=== PATIENT | female | born 1955 | race Caucasian/White ===

== ENCOUNTER 2021-09-02 12:27 | Inpatient (IN) | payer MEDICAID ==
[2021-09-02] MEDS ORDERED: Sodium Chloride 0.9% 1,000 ML IV SCH ×2 (14:00)
[2021-09-02] MEDS ORDERED: Dextrose 5% in Water 1,000 ML IV SCH ×2 (17:15→21:55)
[2021-09-02 17:29] LABS: CORONAVIRUS COVID-19 NAA NEGATIVE (NEGATIVE)
[2021-09-02] MEDS ORDERED: Magnesium Hydroxide 400 MG/5 ML Susp 30 ML Cup PO PRN (17:45)
[2021-09-02] MEDS ORDERED: Ondansetron 4 MG/2 ML SDV IV PRN (17:45)
[2021-09-02] MEDS ORDERED: Ondansetron 4 MG Tab.DIS PO PRN (17:45)
[2021-09-02] MEDS ORDERED: Albuterol 0.083% 2.5 MG/3 ML Neb Soln NEB PRN (17:45)
[2021-09-02] MEDS ORDERED: LORazepam 2 MG/ML SDV IVPUSH PRN (17:45)
[2021-09-02] MEDS ORDERED: Acetaminophen 325 MG Tab PO PRN (17:45)
[2021-09-02] MEDS: cefTRIAXone 1 GM in Sodium Chloride 0.9% 50 ML IV SCH (18:24)
[2021-09-02] MEDS ORDERED: ClonazePAM 0.5 MG Tab PO ONE (18:42)
[2021-09-02] MEDS: QUEtiapine 100 MG Tab PO SCH (18:49)
[2021-09-02] MEDS ORDERED: Doxycycline 100 MG in Sodium Chloride 0.9% 100 ML IV SCH (20:00)
[2021-09-02] MEDS: Insulin Lispro 100 Unit/ML 3 ML KwikPen SUBCUT SCH (21:42)
[2021-09-02] MEDS: TRIFLUOPERAZINE 5 MG PO SCH (21:44)
[2021-09-02] MEDS: Lactobacillus Rhamnosus GG (Probiotic) Cap PO SCH (21:45)
[2021-09-02] MEDS: Melatonin 3 MG Tab PO SCH (21:45)
[2021-09-03] MEDS: Insulin Lispro 100 Unit/ML 3 ML KwikPen SUBCUT SCH ×2 (07:30→13:28)
[2021-09-03] MEDS ORDERED: TRIFLUOPERAZINE 5 MG PO SCH (08:00)
[2021-09-03] MEDS: OLANZapine 5 MG Tab PO SCH ×2 (09:00→15:39)
[2021-09-03] MEDS: Venlafaxine 75 MG Cap.ER PO SCH (09:00)
[2021-09-03] MEDS: TRIFLUOPERAZINE 5 MG PO SCH ×2 (09:01→20:31)
[2021-09-03] MEDS: QUEtiapine 100 MG Tab PO SCH ×3 (09:02→16:41)
[2021-09-03] MEDS: Pantoprazole 40 MG Tab.CR PO SCH (09:03)
[2021-09-03] MEDS: Lactobacillus Rhamnosus GG (Probiotic) Cap PO SCH ×2 (09:03→20:09)
[2021-09-03] MEDS: ClonazePAM 1 MG Tab PO SCH ×3 (09:13→16:41)
[2021-09-03] MEDS ORDERED: Dextrose 5% in Water 1,000 ML IV SCH (09:20)
[2021-09-03] MEDS: Doxycycline 100 MG in Sodium Chloride 0.9% 100 ML IV SCH ×2 (10:00→21:45)
[2021-09-03] MEDS: cefTRIAXone 1 GM in Sodium Chloride 0.9% 50 ML IV SCH (18:00)
[2021-09-03] MEDS: Melatonin 3 MG Tab PO SCH (20:33)
[2021-09-04] MEDS ORDERED: Dextrose 5% in Water 1,000 ML IV SCH (01:45)
[2021-09-04] MEDS: Venlafaxine 75 MG Cap.ER PO SCH (08:19)
[2021-09-04] MEDS: Pantoprazole 40 MG Tab.CR PO SCH (08:20)
[2021-09-04] MEDS: QUEtiapine 100 MG Tab PO SCH ×2 (08:21→11:55)
[2021-09-04] MEDS: TRIFLUOPERAZINE 5 MG PO SCH (08:21)
[2021-09-04] MEDS: OLANZapine 5 MG Tab PO SCH (08:24)
[2021-09-04] MEDS: Lactobacillus Rhamnosus GG (Probiotic) Cap PO SCH (08:24)
[2021-09-04] MEDS: ClonazePAM 1 MG Tab PO SCH ×2 (08:33→11:54)
[2021-09-04] MEDS: Doxycycline 100 MG in Sodium Chloride 0.9% 100 ML IV SCH (09:19)
[2021-09-04 11:41] VITALS: BP 116/65; PULSE 71
== END 2021-09-04 13:37 | disposition home or self-care (01) | DRG 682 ==
LOC: JP.ED 12:27 → JP.MS 17:11
PROVIDERS: ADMIT Internal Medicine; ATTEND Internal Medicine
DX: N17.9 Acute kidney failure, unspecified (principal); J69.0 Pneumonitis due to inhalation of food and vomit; E87.0 Hyperosmolality and hypernatremia; N30.00 Acute cystitis without hematuria; S06.9X9S Unspecified intracranial injury with loss of consciousness of unspecified duration, sequela; F28 Other psychotic disorder not due to a substance or known physiological condition; Z79.899 Other long term (current) drug therapy; F03.90 Unspecified dementia, unspecified severity, without behavioral disturbance, psychotic disturbance, mood disturbance, and anxiety; E11.9 Type 2 diabetes mellitus without complications; Z90.49 Acquired absence of other specified parts of digestive tract; Z87.820 Personal history of traumatic brain injury; Z87.891 Personal history of nicotine dependence; E86.0 Dehydration; Z20.822 Contact with and (suspected) exposure to COVID-19; B96.89 Other specified bacterial agents as the cause of diseases classified elsewhere
CPT/HCPCS: 0241U; 36415; 71045; 71045-26; 80048; 81001; 82140; 82947; 83735; 84295; 85027; 86140; 87086; 87088; 87186; 99222; 99232; 99239; 99283; A9270-GY; J0696; J1815; J3490; J7030; J7060

== ENCOUNTER 2021-09-08 06:14 | Emergency (ER) | payer MEDICAID ==
[2021-09-08] MEDS ORDERED: Lidocaine 1% with EPINEPHrine 1:100,000 50 ML MDV INFILT STA (06:32)
[2021-09-08] MEDS ORDERED: Bacitracin Oint 1 GM U/D Packet TOP ONE (06:57)
[2021-09-08] MEDS ORDERED: Diphtheria,Pertussis(Acell),Tetanus Vaccine 0.5 ML Syringe IM ONE (07:00)
== END 2021-09-08 08:01 | disposition home or self-care (01) ==
LOC: JP.ED 06:14
DX: S01.112A Laceration without foreign body of left eyelid and periocular area, initial encounter (principal); E11.9 Type 2 diabetes mellitus without complications; Z88.5 Allergy status to narcotic agent; Z79.899 Other long term (current) drug therapy; Z23 Encounter for immunization; Z86.16 Personal history of COVID-19; W18.09XA Striking against other object with subsequent fall, initial encounter
CPT/HCPCS: 12013; 70450; 90471; 90715; 99282; 99283-25

== ENCOUNTER 2022-07-30 23:48 | Inpatient (IN) | payer MEDICARE, MEDICAID ==
[2022-07-31] MEDS ORDERED: LORazepam 2 MG/ML SDV IVPUSH ONE (00:47)
[2022-07-31] MEDS ORDERED: Sodium Chloride 0.9% 1,000 ML IV SCH ×2 (01:00→06:00)
[2022-07-31 01:33] LABS: ESTIMATED GFR 51 mL/min (>60)
[2022-07-31] MEDS ORDERED: Iopamidol 612 MG/ML 100 ML Bottle IV STA (01:57)
[2022-07-31] MEDS ORDERED: Sodium Chloride 0.9% 50 ML IV STA (01:57)
[2022-07-31] MEDS ORDERED: OLANZapine 5 MG Tab PO ONE (02:01)
[2022-07-31] MEDS ORDERED: Ondansetron 4 MG Tab.DIS PO PRN (05:49)
[2022-07-31] MEDS ORDERED: Magnesium Hydroxide 400 MG/5 ML Susp 30 ML Cup PO PRN (05:49)
[2022-07-31] MEDS ORDERED: Ondansetron 4 MG/2 ML SDV IV PRN (05:49)
[2022-07-31] MEDS ORDERED: Bisacodyl 5 MG Tab PO ONE (06:45)
[2022-07-31 06:51] LABS: CORONAVIRUS COVID-19 NAA NEGATIVE (NEGATIVE)
[2022-07-31] MEDS ORDERED: OLANZapine 5 MG Tab PO SCH (09:00)
[2022-07-31] MEDS ORDERED: Venlafaxine 75 MG Cap.ER PO SCH (09:00)
[2022-07-31] MEDS ORDERED: Polyethylene Glycol 3350 Powder 238 GM Bot PO ONE (09:00)
[2022-07-31] MEDS ORDERED: TRIFLUOPERAZINE 2 MG PO SCH (09:00)
[2022-07-31] MEDS ORDERED: Bisacodyl 10 MG Supp RECTAL ONE (10:00)
[2022-07-31] MEDS ORDERED: Enoxaparin 40 MG/0.4 ML Syringe SUBCUT SCH (10:00)
[2022-07-31] MEDS: ClonazePAM 0.5 MG Tab PO SCH ×3 (10:16→21:18)
[2022-07-31] MEDS: Piperacillin/Tazobactam/Dext 3.375 GM in Premix Bag 1 BAG IV SCH ×3 (10:17→21:18)
[2022-07-31] MEDS ORDERED: metFORMIN 500 MG Tab PO SCH (13:00)
[2022-07-31] MEDS: CLONIDINE 0.1 MG PO SCH (14:04)
[2022-07-31] MEDS: OLANZAPINE 10 MG PO SCH ×2 (14:05→20:19)
[2022-07-31] MEDS: TRIFLUOPERAZINE 5 MG PO SCH ×2 (14:05→20:20)
[2022-07-31] MEDS: VENLAFAXINE 150 MG PO SCH (14:09)
[2022-07-31] MEDS: Sodium Chloride 0.9% 1,000 ML IV SCH (16:02)
[2022-07-31] MEDS: QUETIAPINE 300 MG PO SCH (20:17)
[2022-07-31] MEDS: atorvaSTATin 20 MG Tab (PTOM) PO SCH (20:19)
[2022-07-31] MEDS: Acetaminophen 325 MG Tab PO PRN (22:44)
[2022-08-01] MEDS: Melatonin 3 MG Tab PO PRN (02:50)
[2022-08-01] MEDS: Acetaminophen 325 MG Tab PO PRN (02:50)
[2022-08-01] MEDS: Piperacillin/Tazobactam/Dext 3.375 GM in Premix Bag 1 BAG IV SCH ×2 (03:09→10:15)
[2022-08-01] MEDS: CLONIDINE 0.1 MG PO SCH (09:01)
[2022-08-01] MEDS: OLANZAPINE 10 MG PO SCH ×2 (09:02→20:47)
[2022-08-01] MEDS: VENLAFAXINE 150 MG PO SCH (09:02)
[2022-08-01] MEDS: TRIFLUOPERAZINE 5 MG PO SCH ×2 (09:03→20:45)
[2022-08-01] MEDS: acetaZOLAMIDE 250 MG Tab PO SCH ×2 (09:05→20:48)
[2022-08-01] MEDS: ClonazePAM 0.5 MG Tab PO SCH ×3 (09:10→20:51)
[2022-08-01] MEDS: Sodium Chloride 0.9% 1,000 ML IV SCH (09:13)
[2022-08-01] MEDS: Piperacillin/Tazobactam/Dext 2.25 GM in Premix Bag 1 BAG IV SCH ×2 (15:48→21:37)
[2022-08-01] MEDS: QUETIAPINE 300 MG PO SCH (20:44)
[2022-08-01] MEDS: atorvaSTATin 20 MG Tab (PTOM) PO SCH (20:47)
[2022-08-02] MEDS: Sodium Chloride 0.9% 1,000 ML IV SCH (01:07)
[2022-08-02] MEDS: Piperacillin/Tazobactam/Dext 2.25 GM in Premix Bag 1 BAG IV SCH ×4 (03:01→21:14)
[2022-08-02] MEDS: CLONIDINE 0.1 MG PO SCH (08:25)
[2022-08-02] MEDS: OLANZAPINE 10 MG PO SCH ×2 (08:26→20:47)
[2022-08-02] MEDS: VENLAFAXINE 150 MG PO SCH (08:27)
[2022-08-02] MEDS: TRIFLUOPERAZINE 5 MG PO SCH ×2 (08:27→20:46)
[2022-08-02] MEDS: acetaZOLAMIDE 250 MG Tab PO SCH ×2 (08:29→20:48)
[2022-08-02] MEDS: ClonazePAM 0.5 MG Tab PO SCH ×3 (08:32→20:50)
[2022-08-02] MEDS: QUETIAPINE 300 MG PO SCH (20:45)
[2022-08-02] MEDS: atorvaSTATin 20 MG Tab (PTOM) PO SCH (20:46)
[2022-08-03] MEDS: Piperacillin/Tazobactam/Dext 2.25 GM in Premix Bag 1 BAG IV SCH ×4 (03:17→21:33)
[2022-08-03] MEDS ORDERED: Potassium Chloride 20 MEQ Tab.ER PO ONE ×2 (08:30→17:00)
[2022-08-03] MEDS: OLANZAPINE 10 MG PO SCH (09:13)
[2022-08-03] MEDS: TRIFLUOPERAZINE 5 MG PO SCH ×2 (09:14→20:54)
[2022-08-03] MEDS: CLONIDINE 0.1 MG PO SCH (09:15)
[2022-08-03] MEDS: VENLAFAXINE 150 MG PO SCH (09:16)
[2022-08-03] MEDS: ClonazePAM 0.5 MG Tab PO SCH ×3 (09:23→20:53)
[2022-08-03] MEDS: Acetaminophen 325 MG Tab PO PRN (12:09)
[2022-08-03] MEDS: QUETIAPINE 300 MG PO SCH (20:54)
[2022-08-03] MEDS: atorvaSTATin 20 MG Tab PO SCH (20:54)
[2022-08-03] MEDS: OLANZapine 5 MG Tab PO SCH (20:55)
[2022-08-04] MEDS: Piperacillin/Tazobactam/Dext 2.25 GM in Premix Bag 1 BAG IV SCH (03:10)
[2022-08-04] MEDS ORDERED: Potassium Chloride 20 MEQ Tab.ER PO ONE (09:00)
[2022-08-04] MEDS: cloNIDine 0.1 MG Tab PO SCH (09:03)
[2022-08-04] MEDS: TRIFLUOPERAZINE 5 MG PO SCH ×2 (09:06→20:01)
[2022-08-04] MEDS: OLANZapine 5 MG Tab PO SCH ×2 (09:06→20:03)
[2022-08-04] MEDS: Venlafaxine 75 MG Cap.ER PO SCH (09:06)
[2022-08-04] MEDS: ClonazePAM 0.5 MG Tab PO SCH ×3 (09:09→20:06)
[2022-08-04] MEDS: Piperacillin/Tazobactam/Dext 3.375 GM in Premix Bag 1 BAG IV SCH ×2 (10:33→15:14)
[2022-08-04] MEDS: atorvaSTATin 20 MG Tab PO SCH (20:00)
[2022-08-04] MEDS: QUETIAPINE 300 MG PO SCH (20:01)
[2022-08-04] MEDS: Amoxicillin/Clavulanate K 875-125 MG Tab PO SCH (21:29)
[2022-08-04] MEDS: Melatonin 3 MG Tab PO PRN (21:32)
[2022-08-05] MEDS: cloNIDine 0.1 MG Tab PO SCH (08:27)
[2022-08-05] MEDS: Venlafaxine 75 MG Cap.ER PO SCH (08:27)
[2022-08-05] MEDS: OLANZapine 5 MG Tab PO SCH (08:27)
[2022-08-05] MEDS: TRIFLUOPERAZINE 5 MG PO SCH (08:29)
[2022-08-05] MEDS: ClonazePAM 0.5 MG Tab PO SCH (08:29)
[2022-08-05] MEDS: Amoxicillin/Clavulanate K 875-125 MG Tab PO SCH (09:42)
== END 2022-08-05 10:25 | disposition home or self-care (01) | DRG 392 ==
LOC: JP.ED 23:48 → JP.MS 07-31 05:44 → OBSVTOIN 08-01 14:40
PROVIDERS: ADMIT Hospitalist; ATTEND Internal Medicine
DX: K59.01 Slow transit constipation (principal); K59.09 Other constipation; K52.9 Noninfective gastroenteritis and colitis, unspecified; Z20.822 Contact with and (suspected) exposure to COVID-19; E11.9 Type 2 diabetes mellitus without complications; E11.22 Type 2 diabetes mellitus with diabetic chronic kidney disease; N18.31 Chronic kidney disease, stage 3a; E86.0 Dehydration; F03.90 Unspecified dementia, unspecified severity, without behavioral disturbance, psychotic disturbance, mood disturbance, and anxiety; F63.9 Impulse disorder, unspecified; E78.5 Hyperlipidemia, unspecified; F29 Unspecified psychosis not due to a substance or known physiological condition; Z66 Do not resuscitate; Z79.84 Long term (current) use of oral hypoglycemic drugs; Z79.899 Other long term (current) drug therapy; Z88.8 Allergy status to other drugs, medicaments and biological substances; Z87.820 Personal history of traumatic brain injury; Z90.49 Acquired absence of other specified parts of digestive tract; Z86.16 Personal history of COVID-19
CPT/HCPCS: 0241U; 36415; 74177; 80048; 80053; 81001; 82947; 85025; 85027; 86140; 96361; 96365; 96366; 96376; 97110; 97116; 97162; 97165; 97530; 99223; 99233; 99238; 99284; 99285; 96360; A9270-GY; G0378; J2543; J3490; J7030; Q9967